=== PATIENT | female | born 1955 | race Hispanic/Latino ===

== ENCOUNTER 2019-02-07 14:21 | Inpatient (IN) | payer MEDICAID ==
[~2019-02-07] VITALS: Ht 160 cm; Wt 82.9 kg
[2019-02-07] MEDS ORDERED: METHYLPREDNISOLONE SOD SUCC 125MG/2ML VIAL ONE (14:40)
[2019-02-07] MEDS ORDERED: IPRATROPIUM/ALBUTEROL SULFATE 3 ML SOLUTION IH ONE ×3 (14:54→15:33)
[2019-02-07 14:57] LABS: CREATININE 0.8 mg/dL (0.5-1.5); POTASSIUM 3.1 mmol/L (3.5-5.1)
[2019-02-07 14:58] LABS: INR 0.99 (0.85-1.15); PARTIAL THROMBOPLASTIN TIME 26.4 SEC (26.3-35.5); PROTHROMBIN TIME 10.4 SEC (9.6-11.6)
[2019-02-07 15:02] LABS: ALBUMIN 3.2 g/dL (3.5-5.0); BILIRUBIN,TOTAL 0.7 mg/dL (0.2-1.0); TOTAL PROTEIN, SERUM 8.1 g/dL (6.0-8.3)
[2019-02-07 15:06] LABS: ABG BASE EXCESS 4.5 mmol/L (-2.0-3.0); ABG HCO3 26.9 mmol/L (21.0-28.0); ABG OXYGEN SATURATION 97.1 % (95.0-99.0); ABG PCO2 34 mmHg (32-45)
[2019-02-07] MEDS ORDERED: LEVOFLOXACIN 750 MG/D5W 150 ML 150 ML ONE (15:20)
[2019-02-07 15:32] LABS: B-TYPE NATRIURETIC PEPTIDE 186 pg/mL (0-100)
[2019-02-07 15:39] LABS: BASOPHILS % (AUTO) 0.6 % (0.0-5.0); EOSINOPHILS % (AUTO) 0.5 % (0.0-8.0); HEMATOCRIT 38.9 % (36-48); LYMPHOCYTES % (AUTO) 23.4 % (21.0-51.0); MEAN CORPUSCULAR HEMOGLOBIN 31.2 pg (27.0-33.0); MEAN CORPUSCULAR HGB CONC 34.2 g/dL (32.0-36.0); MEAN CORPUSCULAR VOLUME 91.4 fL (79-99); MONOCYTES % (AUTO) 9.3 % (3.0-13.0); NEUTROPHILS % (AUTO) 66.2 % (40.0-77.0); NUCLEATED RED BLOOD CELLS 0.1 % (0.0-0.19); PLATELET COUNT (AUTO) 221 K/uL (130-400); RED BLOOD CELL COUNT(AUTO) 4.25 MIL/uL (4.00-5.50); RED CELL DISTRIBUTION WIDTH 13.3 % (11.0-15.5)
[2019-02-07] MEDS ORDERED: POTASSIUM BICARB/CIT AC 25 MEQ TABLET.EFF ONE (15:50)
[2019-02-07] MEDS ORDERED: SODIUM CHLORIDE 0.9% 1000ML 2,000 ML IV ONE (16:00)
[2019-02-07] MEDS ORDERED: SODIUM CHLORIDE 0.9% 1000ML 1,000 ML IV SCH (17:10)
[2019-02-07] MEDS ORDERED: LACTULOSE 20 GM/30 ML UDCUP PO PRN (17:15)
[2019-02-07] MEDS ORDERED: NITROGLYCERIN 0.4 MG SL TAB SL PRN (17:15)
[2019-02-07] MEDS ORDERED: HYDROCODONE/ACETAMINOPHEN 5/325 MG TAB PO PRN (17:15)
[2019-02-07] MEDS: CEFTRIAXONE SODIUM 1 GM IV SCH (17:15)
[2019-02-07] MEDS ORDERED: ONDANSETRON HCL 4 MG/2 ML VIAL IV PRN (17:15)
[2019-02-07] MEDS ORDERED: POTASSIUM CHLORIDE 20MEQ/100ML 100 ML IV PRN ×2 (17:30→19:00)
[2019-02-07] MEDS ORDERED: MAGNESIUM 2GM PREMIX 50ML 50 ML IV PRN (17:30)
[2019-02-07] MEDS ORDERED: LIDOCAINE HCL-MPF 1% 2ML VIAL IV PRN ×2 (17:30→19:00)
[2019-02-07] MEDS ORDERED: BENZONATATE 100 MG CAPSULE PO ONE (17:42)
[2019-02-07] MEDS ORDERED: ENOXAPARIN SODIUM 40 MG/0.4 ML SYRINGE SQ ONE (17:43)
[2019-02-07] MEDS ORDERED: CEFTRIAXONE SODIUM 1 GM ONE (17:43)
[2019-02-07] MEDS ORDERED: HYDRALAZINE HCL 20 MG/ML VIAL IV PRN (17:45)
[2019-02-07] MEDS ORDERED: SODIUM CHLORIDE 0.9% 500ML 500 ML IV ONE (17:50)
[2019-02-07 18:31] LABS: APPEARANCE,URINE Clear (CLEAR); BILIRUBIN,URINE Negative (NEGATIVE); COLOR,URINE Yellow (YELLOW); GLUCOSE, URINE (UA) Negative (NEGATIVE); KETONES,URINE Negative (NEGATIVE); LEUKOCYTE ESTERASE ,URINE Negative (NEGATIVE); NITRATE,URINE Negative (NEGATIVE); OCCULT BLOOD,URINE Small (NEGATIVE); PH,URINE 7.5 (5.0-8.0); PROTEIN,URINE Negative (NEGATIVE)
[2019-02-07 18:41] VITALS: BP 130/68
[2019-02-07 18:51] LABS: BACTERIA,URINE Few /HPF (None Seen); MUCUS,URINE None Seen LPF (None Seen); SQUAMOUS EPITHELIAL CELL,UR 0-2 /HPF (0-2); WBC,URINE 0-1 /HPF (0-1)
[2019-02-07] MEDS ORDERED: POTASSIUM CHLORIDE 10% ELIXIR 20 MEQ/15 ML UDCUP PO PRN (19:00)
[2019-02-07] MEDS: IPRATROPIUM/ALBUTEROL SULFATE 3 ML SOLUTION IH SCH ×2 (19:10→23:17)
[2019-02-07 19:21] VITALS: BP 120/58
--- NOTE | 2019-02-07 20:00 | NUR ---
PM NOTE PT RESTING IN BED, FAMILY AT BEDSIDE. NO S/S OF DISTRESS. ALERT AND ORIENTED X3. DENIES PAIN AT THIS MOMENT. ON TELEMETRY PATIENT IS SINUS RHYTHM HEART RATE AT 75. ENCOURAGED TO CALL FOR ASSISTANCE. CALL LIGHT WITHIN REACH. VERBALIZED UNDERSTANDING.
[2019-02-07] MEDS: BENZONATATE 100 MG CAPSULE PO SCH (21:03)
[2019-02-07] MEDS: FAMOTIDINE 20MG TAB 20 MG TAB PO SCH (21:03)
[2019-02-07] MEDS: METHYLPREDNISOLONE SOD SUCC 40MG/ML 1ML IVP SCH (21:03)
[2019-02-07] MEDS: POTASSIUM CHLORIDE 20 MEQ ERTAB PO PRN (21:06)
[2019-02-07 23:30] VITALS: BP 134/66
[2019-02-08 03:46] LABS: MEAN CORPUSCULAR HEMOGLOBIN 31.8 pg (27.0-33.0); MEAN CORPUSCULAR HGB CONC 34.2 g/dL (32.0-36.0); PLATELET COUNT (AUTO) 188 K/uL (130-400); RED BLOOD CELL COUNT(AUTO) 3.97 MIL/uL (4.00-5.50); RED CELL DISTRIBUTION WIDTH 13.6 % (11.0-15.5); WHITE BLOOD COUNT (AUTO) 8.3 K/uL (4.8-10.8)
[2019-02-08 03:53] VITALS: BP 123/59
[2019-02-08 04:00] LABS: ALBUMIN 2.9 g/dL (3.5-5.0); BILIRUBIN,TOTAL 0.4 mg/dL (0.2-1.0); CREATININE 0.7 mg/dL (0.5-1.5); MAGNESIUM 1.8 mg/dL (1.80-2.40); TOTAL PROTEIN, SERUM 7.5 g/dL (6.0-8.3)
[2019-02-08] MEDS: METHYLPREDNISOLONE SOD SUCC 40MG/ML 1ML IVP SCH ×3 (05:26→21:13)
--- NOTE | 2019-02-08 05:33 | NUR ---
POTASSIUM REPLACEMENT ATTEMPTED TO GIVE REPLACEMENT FOR POTASSIUM THIS AM, PATIENT REFUSED DOSE AT THIS TIME. WILL TRY AGAIN LATER. NO OTHER S/S OF DISTRESS. NO EVENTS ON TELEMETRY.
[2019-02-08] MEDS: IPRATROPIUM/ALBUTEROL SULFATE 3 ML SOLUTION IH SCH (06:41)
[2019-02-08] MEDS: POTASSIUM CHLORIDE 20 MEQ ERTAB PO PRN ×3 (06:56→09:07)
[2019-02-08 07:00] VITALS: BP 146/71
--- NOTE | 2019-02-08 07:30 | NUR ---
ASSESSMENT ENCOUNTERED PT A&OX3, CALM COOPERATIVE AND DOES NOT APPEAR TO BE IN ANY DISTRESS NOR ANY NEURO DEFICITS PRESENT. PT DENIES PAIN, SOB, NAUSEA. PT IS AMBULATORY, GAIT STEADY AND STRONG WITH STAND BY ASSIST. CALL LIGHT WITHIN REACH.
[2019-02-08] MEDS ORDERED: NICOTINE 7 MG/ 24 HR PATCH TD SCH (08:15)
[2019-02-08] MEDS: AZITHROMYCIN 500MG+NS 250ML 250 ML IV SCH (08:56)
[2019-02-08] MEDS: BENZONATATE 100 MG CAPSULE PO SCH ×3 (08:58→21:12)
[2019-02-08] MEDS: FAMOTIDINE 20MG TAB 20 MG TAB PO SCH ×2 (08:58→21:12)
[2019-02-08] MEDS: ENOXAPARIN SODIUM 40 MG/0.4 ML SYRINGE SQ SCH (08:59)
[2019-02-08] MEDS ORDERED: LEVOFLOXACIN 500 MG/D5W 100 ML 100 ML IV SCH (09:00)
[2019-02-08] MEDS: IPRATROPIUM/ALBUTEROL SULFATE 3 ML SOLUTION IH PRN (10:54)
[2019-02-08 11:00] VITALS: BP 134/69
[2019-02-08 15:00] VITALS: BP 128/69
[2019-02-08] MEDS: CEFTRIAXONE SODIUM 1 GM IV SCH (16:44)
--- NOTE | 2019-02-08 17:58 | NUR ---
cm note met with patient and states resides at home with spouse, uses cane and walker for ambulation, has provider approx 3-4hrs daily. spouse Ernie Blairos [phone]. pt states dc plan is back to home at time of dc. Addendum: 02/08/19 at 1800 by NITIN ZELAYA CM Amended: Links added.
[2019-02-08 20:28] VITALS: BP 134/68
[2019-02-08] MEDS: ACETAMINOPHEN 325 MG TAB PO PRN (21:43)
[2019-02-08] MEDS: GUAIFENESIN-DM 200/20 MG 10 ML PO PRN (22:20)
[2019-02-08 23:59] VITALS: BP 148/78
[2019-02-09] MEDS: IPRATROPIUM/ALBUTEROL SULFATE 3 ML SOLUTION IH PRN ×2 (01:12→06:33)
[2019-02-09 04:18] VITALS: BP 127/65
[2019-02-09] MEDS: ACETAMINOPHEN 325 MG TAB PO PRN (04:49)
[2019-02-09] MEDS: GUAIFENESIN-DM 200/20 MG 10 ML PO PRN (04:52)
[2019-02-09] MEDS: METHYLPREDNISOLONE SOD SUCC 40MG/ML 1ML IVP SCH (04:57)
[2019-02-09] MEDS: CEFTRIAXONE SODIUM 1 GM IV SCH (07:29)
[2019-02-09] MEDS: BENZONATATE 100 MG CAPSULE PO SCH (07:30)
[2019-02-09] MEDS: AZITHROMYCIN 500MG+NS 250ML 250 ML IV SCH (07:30)
[2019-02-09] MEDS: FAMOTIDINE 20MG TAB 20 MG TAB PO SCH (07:30)
[2019-02-09] MEDS: ENOXAPARIN SODIUM 40 MG/0.4 ML SYRINGE SQ SCH (07:30)
[2019-02-09 07:51] VITALS: BP 138/70
[2019-02-09] MEDS ORDERED: LEVO50TA11 PO ×2 (09:50→09:59)
[2019-02-09] MEDS ORDERED: HYDR25TA PO ×2 (09:50→09:59)
[2019-02-09] MEDS ORDERED: ISOS30TA6 PO ×2 (09:50→09:59)
[2019-02-09] MEDS ORDERED: METO-391 PO ×2 (09:50→09:59)
[2019-02-09] MEDS ORDERED: CLOP75TA14 PO ×2 (09:50→09:59)
[2019-02-09] MEDS ORDERED: AZIT500T4 PO (09:59)
[2019-02-09] MEDS ORDERED: GUAI600T50 PO (09:59)
[2019-02-09] MEDS ORDERED: CEPH500B PO (09:59)
[2019-02-09] MEDS ORDERED: PRED50TA2 PO (09:59)
[2019-02-09] MEDS ORDERED: NICO-649 TD (09:59)
[2019-02-09 10:23] LABS: CREATININE 0.8 mg/dL (0.5-1.5); POTASSIUM 3.8 mmol/L (3.5-5.1)
[2019-02-09 11:33] VITALS: BP 150/76
[2019-02-09] MEDS ORDERED: METOPROLOL TARTRATE 25 MG TAB PO SCH (21:00)
[2019-02-10] MEDS ORDERED: LEVOTHYROXINE 50 MCG TABLET PO SCH (07:30)
[2019-02-10] MEDS ORDERED: CLOPIDOGREL BISULFATE 75 MG TAB PO SCH (09:00)
[2019-02-10] MEDS ORDERED: HYDROCHLOROTHIAZIDE 25 MG TABLET PO SCH (09:00)
[2019-02-10] MEDS ORDERED: ISOSORBIDE MONO 30MG TAB SR PO SCH (09:00)
== END 2019-02-09 13:10 | disposition home or self-care (01) | DRG 139 ==
LOC: EDH 14:21 → EDHIP 14:22 → 2AH 18:22
PROVIDERS: ADMIT Internal Medicine; ATTEND Internal Medicine
DX: J18.9 Pneumonia, unspecified organism (principal); J96.00 Acute respiratory failure, unspecified whether with hypoxia or hypercapnia; E44.1 Mild protein-calorie malnutrition; E87.3 Alkalosis; J44.0 Chronic obstructive pulmonary disease with (acute) lower respiratory infection; E83.42 Hypomagnesemia; E78.5 Hyperlipidemia, unspecified; E87.6 Hypokalemia; F17.210 Nicotine dependence, cigarettes, uncomplicated; I10 Essential (primary) hypertension; F41.9 Anxiety disorder, unspecified; Z68.32 Body mass index [BMI] 32.0-32.9, adult; Z95.5 Presence of coronary angioplasty implant and graft; Z88.8 Allergy status to other drugs, medicaments and biological substances
CPT/HCPCS: 36415; 36600; 71045; 80048; 80053; 81001; 82550; 82803; 83605; 83735; 83880; 84145; 84484; 85025; 85027; 85610; 85730; 87040; 87088; 87804; 93005; 94640; 94664; G0378; J0456; J0696; J1650; J1956; J2920; J2930; J3475; J7030; J7040

== ENCOUNTER → 2023-04-05 | Outpatient (CLI) | payer OTHER, MEDICARE ==
[~2023-04-05] MED LIST: AZIT500T4 PO; CEPH500B PO; CLOP-31 PO; GUAI600T50 PO; HYDR25TA PO; ISOS30TA92 PO; LEVO50TA11 PO; METO-391 PO; NICO-649 TD; PRED50TA2 PO
== END | disposition home or self-care (01) ==
LOC: RAH 09:45
PROVIDERS: ATTEND Family Medicine
DX: Z12.31 Encounter for screening mammogram for malignant neoplasm of breast (principal)
CPT/HCPCS: 77067